=== PATIENT | male | born 2000 | race Asian ===

== ENCOUNTER 2020-06-30 01:53 | Emergency (ER) | payer BC ==
[~2020-06-30] VITALS: Ht 172.7 cm; Wt 78.9 kg
[2020-06-30 02:03] VITALS: BP 141/84; Ht 172.7 cm; Wt 78.9 kg
== END 2020-06-30 03:30 | disposition home or self-care (01) ==
LOC: ED 01:53
DX: S92.511A Displaced fracture of proximal phalanx of right lesser toe(s), initial encounter for closed fracture (principal); Z88.2 Allergy status to sulfonamides; W22.8XXA Striking against or struck by other objects, initial encounter; Y93.89 Activity, other specified; Y92.89 Other specified places as the place of occurrence of the external cause; Y99.8 Other external cause status
CPT/HCPCS: Q0092